=== PATIENT | male | born 1985 | race Caucasian/White ===

== ENCOUNTER 2017-09-23 18:55 | Emergency (ER) | payer OTHER ==
[~2017-09-23] VITALS: Ht 170.2 cm; Wt 99.8 kg
[2017-09-23 19:47] VITALS: BP 101/67
--- NOTE | 2017-09-23 20:10 | NUR ---
TO LOBBY,PRIYANK MURILLO, A/W BED, LIYAH NOTED
--- NOTE | 2017-09-23 20:32 | NUR ---
TO ER BED 12
--- NOTE | 2017-09-23 20:35 | NUR ---
32/M CAME IN W C/O CHEST CONGESTION X 11 DAYS. PT STATES HE WAS SEEN IN ER FOR SIMILAR SYMTPOMS AND WAS GIVEN ALBUTEROL HHN AND STEROID PILLS, REPORTS NO RELIEF OF SYMPTOMS. ALL LUNG SOUNDS CBTA, 20 RR EVEN AND UNLABORED, PT AFEBRILE. REPORTS PRODUCTIVE COUGH X 11 DAYS. DENIES OTHER PMH/RX/OTC
--- NOTE | 2017-09-23 21:32 | NUR ---
Patient discharged with v/s stable. Written and verbal after care instructions given and explained. Patient alert, oriented and verbalized understanding of instructions. Ambulatory with steady gait. All questions addressed prior to discharge. ID band removed. Patient advised to follow up with PMD. Rx of AZITHROMYCIN AND ROBITUSSIN given. Patient educated on indication of medication including possible reaction and side effects. Opportunity to ask questions provided and answered.
[2017-09-23 21:34] VITALS: BP 118/72
== END 2017-09-23 21:32 | disposition home or self-care (01) ==
LOC: MED 18:55
DX: J40 Bronchitis, not specified as acute or chronic (principal); Z88.0 Allergy status to penicillin
CPT/HCPCS: 71045; 93005; 99284